=== PATIENT | female | born 1960 | race Caucasian/White ===

== ENCOUNTER → 2018-05-31 07:25 | Outpatient (CLI) | payer OTHER, SELFPAY ==
[2018-05-31 07:32] LABS: Bacteria Urine None Seen; WBC Urine None Seen (0-5/HPF)
[2018-05-31 08:45] LABS: Appearance Urine UA CLEAR; Bilirubin Urine UA NEGATIVE (NEGATIVE); Color Urine UA YELLOW; Glucose Urine UA NEGATIVE (Normal); Ketones Urine UA NEGATIVE (NEGATIVE); Leukocyte Esterase Urine UA NEGATIVE (NEGATIVE); Nitrite Urine UA Negative (Negative); Occult Blood Urine UA 2+ (Negative); Protein Urine UA NEGATIVE (Negative); Specific Gravity Urine UA 1.015 (1.000-1.035); Urobilinogen Urine UA 0.2 E.U./dL (0.2)
[2018-05-31 08:46] LABS: Add Manual Diff / Slide Review NO; Eosinophils Percent Auto 2.8 % (2-4); Hematocrit 41.9 % (36-46); Hemoglobin 14.4 g/dL (12.0-16.0); Mean Corpuscular HGB Conc 34.3 % (30-36); Mean Corpuscular Hemoglobin 33.5 PG (26-34); Mean Corpuscular Volume 97.7 fL (80-100); Monocytes Percent Auto 8.2 % (3-14); Neutrophils Absolute Auto 2000 /uL (3000-5900); Platelet Count 194 X10^3/uL (150-400); Red Blood Cell Count 4.29 X10^6/uL (4.0-5.2); Red Cell Distribution Width 12.7 % (11.6-14.8); White Blood Cell Count 3.9 X10^3/uL (4.5-11.0)
[2018-05-31 09:13] LABS: RBC Urine 1-5/HPF (0-5/HPF)
[2018-05-31 09:33] LABS: Blood Urea Nitrogen 18 mg/dL (7-17); Calcium 9.8 mg/dL (8.4-10.2); Carbon Dioxide 31 mmol/L (22-32); Chloride 106 mmol/L (98-107); Estimated Glomerular Filt Rate 56.9 mL/min (>60); Glucose 100 mg/dL (70-100); HEMOLYSIS < 15 (0-50); Potassium 4.8 mmol/L (3.4-5.1); Sodium 146 mmol/L (137-145)
== END ==
PROVIDERS: Visit Provider Orthopaedic Surgery
DX: Z01.818 Encounter for other preprocedural examination (principal); Z01.812 Encounter for preprocedural laboratory examination; R73.9 Hyperglycemia, unspecified; N39.0 Urinary tract infection, site not specified
CPT/HCPCS: 36415; 80048; 81001; 83036; 85025; 93005

== ENCOUNTER 2018-06-21 08:41 | Inpatient (IN) | payer OTHER, SELFPAY ==
[2018-06-07 08:30] VITALS: BMI 34.2
[2018-06-21] VITALS (11 sets, daily range): BP systolic 102–178; BP diastolic 67–95; PULSE 53–83; RESP 10–20; TEMP 36.1–37; O2SAT 95–100; BMI 34.4
--- NOTE | 2018-06-21 06:00 | DI.RAD.S_ITS ---
PROCEDURE: XR KNEE RT 1TO2V INDICATIONS: post op films TECHNIQUE: 2 view(s) of the knee acquired. COMPARISON: None. FINDINGS: Bones: Patient is status post knee joint arthroplasty. Hardware components are in expected positions. Visualized bony structures are intact. Soft tissues: Overlying postoperative changes are noted. IMPRESSION: Expected postoperative appearance Dictated by: Emerson Rodriguez M.D. on 06/21/2018 at 17:29 Approved by: Emerson Rodriguez M.D. on 06/21/2018 at 17:29
[2018-06-21] MEDS: LACTATED RINGERS 1,000 ML 42 ML IV ×2 (09:46→12:06)
[2018-06-21] MEDS: ACETAMINOPHEN 325 MG TABLET 975 MG PO ×2 (09:46→17:05)
[2018-06-21] MEDS: CELECOXIB 200 MG CAPSULE PO (09:47)
[2018-06-21] MEDS: PREGABALIN 75 MG CAPSULE PO (09:47)
[2018-06-21] MEDS: VANCOMYCIN 1,000 MG/200 ML FROZ.PIGGY 200 MG IV (10:12)
[2018-06-21] MEDS: MIDAZOLAM 2 MG/2 ML VIAL IV (10:55)
[2018-06-21] MEDS: fentaNYL 100 MCG/2 ML INJ IV (10:55)
[2018-06-21] MEDS: DEXAMETHASONE 10 MG/ML VIAL 8 MG IV (11:07)
[2018-06-21] MEDS: ONDANSETRON 4 MG/2 ML INJ IV (11:10)
--- NOTE | 2018-06-21 11:12 | SUR.PREOP ---
Block start time [1055] . Monitoring initiated and maintained throughout procedure. Oxygen and medications given per anesthesiologist instructions. Patient remained stable throughout procedure, no adverse reactions noted. Block end time [1105].
[2018-06-21] MEDS: CEFAZOLIN 2 GM/100 ML FROZ.PIGGY IV ×2 (11:25→20:16)
--- NOTE | 2018-06-21 11:59 | SUR.OPER ---
Supine on padded OR bed. Pillow under head, arms secured on padded armboards <90 degree abduction. Safety belt across torso. Non-operative leg secured with tape over blanket over lower leg. Operative leg secured in DeMayo/Jeronimo positioner. Foam padded brace at thigh of operative leg.
[2018-06-21] MEDS: BUPIVACAINE LIPOSOME 266 MG/20 ML VIAL INJ (12:11)
[2018-06-21] MEDS: BUPIVACAINE 0.25% W/ EPI VIAL 50 ML INJ (12:12)
[2018-06-21] MEDS: POVIDONE-IODINE 15 ML, SODIUM CHLORIDE 0.9% 250 ML TOP (12:13)
[2018-06-21] MEDS: LACTATED RINGERS 1,000 ML 125 ML IV ×2 (14:33→22:48)
--- NOTE | 2018-06-21 17:04 | PT.IIE ---
Current Diagnoses Unilateral primary osteoarthritis, right knee (06/21/18) Surgery Performed Operation Date: 06/21/18 10:45 Actual Procedures p Total Knee Arthroplasty(Right) - Vielka Guy MD Surgical History (Last Updated 06/07/18 @ 09:16 by Marlin Laguna, RN) History of arthroscopy of both knees (Acute) History of colonoscopy (Acute) Hx of lymph node biopsy (Acute) Hx of repair of right rotator cuff (Acute) Hx of tonsillectomy (Acute) Medical History (Last Updated 06/07/18 @ 09:16 by Marlin Laguna RN) Bilateral knee pain (Acute) Chronic pain (Acute) Colonic polyp (Acute) Easy bruisability (Acute) Edema (Acute) Environmental allergies (Acute) GERD (gastroesophageal reflux disease) (Acute) HTN (hypertension) (Acute) History of varicose veins of lower extremity (Acute) Hyperlipidemia (Acute) Hypothyroid (Acute) ANTONIO (iron deficiency anemia) (Acute) Osteoarthritis (Acute) Palpitations (Acute) SVT (supraventricular tachycardia) (Acute) Thyroid disease (Acute) Physical Therapy Inpatient Evaluation/Re-Eval M1 PT/OT-IP Prior Functional Status Start: 06/21/18 16:54 Freq: NEEDED Status: Active Protocol: Document 06/21/18 16:54 [facility] (Rec: 06/21/18 17:04 [facility] [id number]) Medical Review Prior Functional Status Medical History Reviewed Yes Communication WNL Mobility and Gait Indep without AD; pain and reports limping Activities of Daily Living and IADL's indep Social History Household Members significant other Living Arrangements House Number of Floors (Floors) One Floor Number of Stairs To Enter/Railing? 2 ERIC no rail Home Environment Standard Height Toilet Walk in Shower Tub/Shower Home Equipment Front Wheel Walker Straight Cane Raised Toilet Seat w/Armrests Shower Seat without Backrest Employment Status Unemployed Additional Social History Comment Friend who is helping is not working either M2 PT-IP Current Condition Start: 06/21/18 16:54 Freq: NEEDED Status: Active Protocol: Document 06/21/18 16:54 [facility] (Rec: 06/21/18 17:04 [facility] [id number]) Physical Therapy Current Condition Current Condition Evaluation Date 06/21/18 Treatment Diagnosis R TKA Onset Date 06/21/18 Weight Bearing Status Weight Bearing Status Weight Bear as Tolerated M3 PT-IP Subjective Start: 06/21/18 16:54 Freq: NEEDED Status: Active Protocol: Document 06/21/18 16:54 [facility] (Rec: 06/21/18 17:04 [facility] [id number]) Subjective Physical Therapy Visit Type Type Initial Evaluation Visit Start Time 16:00 Visit Stop Time 16:45 Total Visit Minutes 45 Number of HAZ TECH Visits 0 Physical Therapy Visit Comments Patient Goals Pt is hoping to go home tomorrow Therapy Pain Assessment Pain Present Pain Present Denied Pain M4 PT-IP Mobility and Gait Start: 06/21/18 16:54 Freq: NEEDED Status: Active Protocol: Document 06/21/18 16:54 [facility] (Rec: 06/21/18 17:04 [facility] [id number]) PT-Bed Mobility Assessment Rolling Type of Rolling Log Rolling Roll to Right Level of Assist Independent Supine to Sit Supine to Sit Standby Assistance Sit to Supine Sit to Supine Standby Assistance Scooting Scooting to Edge of Bed Independent PT-Transfer Assessment Sit to and From Stand Sit to and from Stand Minimal Assistance Equipment Transfer Assistive Device Gait Belt Front Wheeled Walker Orthotic/Prosthetic Devices or Brace: No Comments Mobility Comments Sit to stand 2x to clean up min A each time with cueing for upright positioning. Pt had dec sensation in LEs and impared balance d/t dec sensation so no transfer performed. supine BP 154/86 Seated 178/95 PT-Balance Assessment Sitting Balance and Reactions Static Sitting Balance Ability Normal Dynamic Sitting Balance Ability Good Standing Balance and Reactions Static Standing Balance Ability Poor Dynamic Standing Balance Ability Poor M5 PT-IP Objective Assessments Start: 06/21/18 16:54 Freq: NEEDED Status: Active Protocol: Document 06/21/18 16:54 [facility] (Rec: 06/21/18 17:04 [facility] [id number]) Orientation Orientation/Cognition Level of Alertness Alert Gross Range of Motion Lower Extremity ROM Assessment Right Impaired Strength Lower Extremity Strength Assessment Right Impaired Sensation Assessment Sensation Gross Sensation Right LE Impaired Left LE Impaired Light Touch Impaired Sensation Description Numbness Tingling Comments Sensation Comments Likely to improve as anesthesia wears off M6 PT-IP Treatment Start: 06/21/18 16:54 Freq: NEEDED Status: Active Protocol: Document 06/21/18 16:54 [facility] (Rec: 06/21/18 17:04 [facility] [id number]) Physical Therapy Treatment Exercises Exercises Ankle Pumps Education Education Provided Post-Op Packet Safety Other Treatments Other Treatment Performed Reviewed possible need of shower chair and pt reported she could borrow her mom's. Pt has OP PT set up next week and educated patient exercises . Discussed circuit court clerk possible need M7 PT-IP Assessment and Plan Start: 06/21/18 16:54 Freq: NEEDED Status: Active Protocol: Document 06/21/18 16:54 [facility] (Rec: 06/21/18 17:04 [facility] [id number]) PT Summary Assessment and Plan Potential Rehabilitation Potential Excellent Status of Condition at Evaluation Unstable Summary Impairments ROM Strength Balance Sensation Transfers Gait Assessment Summary pt presents day of TKA with dec mobility at this time. Pt is likely to improve as anesthesia wears off and with cont edu from PT. Goals Bed Mobility Goal Independent Transfer Goal Independent Gait Goal Standby Assistance Gait Distance 150 Other Goals up/down 2 steps without rail Days to Meet Goals 3 Frequency of Treatment Frequency Of Treatment Twice a Day Treatment Plan Physical Therapy Treatment Plan Bed Mobility Training Transfer Training Gait Training Therapeutic Exercise Balance Retraining Post Op Education Discharge Planning Hot or Cold Pack Neuromuscular Re-ed Other Recommendations and Next Treatment Progress transfer and gait Focus Recommendations To Nursing Amount of Assist Needed 1 Person Assist Discharge Recommendations PT Discharge Recommendations Home with Assistance Outpatient PT
[2018-06-21] MEDS: OXYCODONE IR 5 MG TABLET PO ×3 (17:06→23:40)
--- NOTE | 2018-06-21 18:19 | PM.OP.1 ---
Operative Date/Time/Diagnoses Date of procedure: 06/21/18 Time of procedure: 12:20 Pre-op diagnosis: right knee osteoarthritis Post-op diagnosis: same Procedure & Clinicians Procedure: right total knee arthroplasty Same procedure as scheduled: Yes Indications: severe ongoing right knee pain and failure to respond to conservative care. Surgeon: Vielka Guy Branch Service Representative: Yaa Sanz'Brien Anesthesia Type: Spinal and Peripheral nerve block Operative Notes Findings: Severe right knee osteoarthritis Closure Type: primary Specimen(s): none sent Implants & Drains: Guy and Nephew Journey BCS2 size right femur, size 5 tibia, +9 poly, 35 x 7 and 0.5 mm patella Estimated Blood Loss (mL): 200 Blood products transfused: none Tourniquet time (min): 90 Procedure in detail: The patient was seen in the pre-operative area, where the patient identified the right knee as the operative site and this was marked with my initials. The patient received pre-operative antibiotics, and was taken to the operating room and placed on the operative table in the supine position. After satisfactory anesthesia, a warehouser out was performed. The right leg was encircled with a tourniquet about the proximal thigh, and the leg was prepared from the toes to the tourniquet with ChloroPrep in the usual fashion and draped through sterile drapes. The leg was elevated and exsanguinated with Eschmark bandage and the tourniquet inflated to [250] mmHg pressure. The knee was approached through an approximately 18 cm incision centered over the patella and carried into the knee through a medial parapatellar arthrotomy. A portion of the medial and lateral meniscus was resected. Soft tissue was carefully mobilized around the patella the patella was measured with a caliper. Bone was resected from the patella and the patellar height was reconstituted with up an appropriate sized patellar component. A cover was then placed on the patella. A small amount of additional medial and lateral meniscus was resected. The visionare guide fit well to the distal femur. It looked like an appropriate distal femoral cut and the cut was made without difficulty. The rotation was assessed and the appropriate size femoral guide was placed on the distal femur and finishing cuts were made. There is no evidence of notching. The anterior, posterior and chamfer cuts were then made. The posterior osteophytes and soft tissues were then removed. The posterior capsule was injected with part of a mixture of 60 ml 0.25% Marcaine mixed with 20 ml Exparel for post operative pain control. The remainder of this mixture was injected into the capsule and subcutaneous tissues during cement curing. The tibia was prepared and the visionaire guide fit well to the distal tibia. The rotation was assessed. The patient was placed in extension residual medial and lateral meniscus as well as any residual bone was carefully resected. [No] additional tibia was resected. Hemostasis was achieved especially posteriorly. Additional local was injected into the posterior capsule. The extension gap was assessed and additional releases for gap balancing were performed as necessary. It was checked with the gap fixed income trading vice president. The femoral component was trial was placed and the notch was finished. Trial tibial and femoral components were then placed and the knee placed through a range of motion. Range of motion was [0-130], with good stability throughout the range. The trials were then removed, and the tibia was finished. The bone was prepared with pulsatile lavage, and dried with a sponge. Cement was applied and the tibia and femoral prosthetics were placed. The cement hardened early and a separate batch had to be mixed for the patella. Excess cement was removed during and after cement curing. A brief Betadine soak was performed. After confirming there was no extruded cement posteriorly, the final tibial insert was placed. The femur was about 1mm proud laterally due to cement issues. The knee was copiously irrigated and the tourniquet deflated. Hemostasis was obtained with the [Aquamantys system]. A drain was placed and brought out superolaterally. The capsule was closed with interrupted nonabsorbable sutures. The subcutaneous layer was closed with barbed sutures, and the skin with a running 3-0 V-Lock suture and Surgical glue. An Aquacel Ag dressing was applied and the patient was taken to recovery having tolerated the procedure well. Complications: none Condition: stable Disposition: observation Plan for aftercare: The patient will be maintained on a standard total knee replacement protocol with weight bearing as tolerated. The patient will receive aspirin and sequential compression devices for DVT prophylaxis. The patient will be discharged home when safe for the home environment.
[2018-06-21] MEDS: ATORVASTATIN 20 MG TABLET PO (20:17)
[2018-06-21] MEDS: ASPIRIN EC 81 MG TABLET PO (20:17)
[2018-06-21] MEDS: METOPROLOL IR 50 MG TABLET PO (20:17)
[2018-06-21] MEDS: IBUPROFEN 600 MG TABLET PO (20:17)
[2018-06-21] MEDS: DOCUSATE 100 MG CAPSULE PO (20:17)
--- NOTE | 2018-06-21 22:19 | PC.NURSE ---
Pt reports pain level 4-5/10 holding steady for the shift. Had a couple episodes of incontinence, and feeling of pressure in abdomen/back pain. Bladder scanned for >900cc. Catheter placed/Dr Brooks cordova with leaving in for the night and removing in AM. Pt received spinal, still numb in joseline area and bottom. Aquacell to right knee c/d/i, hemovac patent/compressed. CMS in R leg +.
[2018-06-22 00:19] VITALS: BP 138/81; PULSE 74; RESP 16; TEMP 36.9; O2SAT 97
[2018-06-22] MEDS: CEFAZOLIN 2 GM/100 ML FROZ.PIGGY IV (03:04)
[2018-06-22] MEDS: IBUPROFEN 600 MG TABLET PO (03:04)
[2018-06-22] MEDS: OXYCODONE IR 5 MG TABLET PO ×3 (03:05→11:25)
[2018-06-22 05:25] LABS: Hemoglobin 11.5 g/dL (12.0-16.0)
[2018-06-22] MEDS: LEVOTHYROXINE 125 MCG TABLET PO (05:37)
[2018-06-22 06:01] VITALS: BP 123/68; PULSE 71; RESP 16; TEMP 36.9; O2SAT 99
[2018-06-22] MEDS: METOPROLOL IR 50 MG TABLET PO (06:48)
--- NOTE | 2018-06-22 07:21 | PM.PNPO.1 ---
Subjective Date Patient Seen: 06/22/18 Time Patient Seen: 07:22 Interval history: Patient's pain 11/20. No fever chills. No nausea vomiting. Patient does have assistance at home. Patient does wish to go home today if safe to do so. She does have 2 steps into her house. Otherwise without complaints this morning. Exam Vital Signs (past 8 hours): - 06/22/18 00:19 06/22/18 06:01 Temperature 98.4 F 98.4 F Pulse Rate 74 71 Respiratory Rate 16 16 Blood Pressure 138/81 123/68 Pulse Oximetry 97 99 Oxygen Delivery Method Room Air Oxygen Flow Rate 0 Narrative Exam Narrative: 58-year-old female resting comfortably in bed in no apparent distress. Right knee dressing is clean, dry and intact. Hemovac drain in place. Motor functions intact distal right lower extremity. Sensation grossly intact to light touch. Objective Labs Result Diagrams: 06/22/18 05:08 Labs: Laboratory Results - last 24 hr 06/22/18 05:08 Hgb 11.5 L Hct 33.0 L Assessment & Plan Post-op Postoperative Procedures Operation Date: 06/21/18 10:45 Actual Procedures Side Surgeon p Total Knee Arthroplasty Right Vielka Guy MD Patient progressing as expected status post right total knee arthroplasty. Likely discharge home today after physical therapy. Quality VTE Deep Vein Thrombosis/Pulmonary Embolism Present on Admission: No
[2018-06-22 07:55] VITALS: BP 135/78; PULSE 69; RESP 16; TEMP 36.8; O2SAT 100
[2018-06-22] MEDS: ASPIRIN EC 81 MG TABLET PO (08:56)
[2018-06-22] MEDS: DOCUSATE 100 MG CAPSULE PO (08:56)
[2018-06-22] MEDS: ACETAMINOPHEN 325 MG TABLET 975 MG PO (08:56)
--- NOTE | 2018-06-22 09:48 | PT.IPTN ---
Current Diagnoses Unilateral primary osteoarthritis, right knee (06/21/18) Surgery Performed Operation Date: 06/21/18 10:45 Actual Procedures p Total Knee Arthroplasty(Right) - Vielka Guy MD Physical Therapy Treatment Note M2 PT-IP Current Condition Start: 06/21/18 16:54 Freq: NEEDED Status: Active Protocol: Document 06/21/18 16:54 [facility] (Rec: 06/21/18 17:04 [facility] [id number]) Physical Therapy Current Condition Current Condition Evaluation Date 06/21/18 Treatment Diagnosis R TKA Onset Date 06/21/18 Weight Bearing Status Weight Bearing Status Weight Bear as Tolerated M3 PT-IP Subjective Start: 06/21/18 16:54 Freq: NEEDED Status: Active Protocol: Document 06/22/18 09:38 [facility] (Rec: 06/22/18 09:48 [facility] [id number]) Subjective Physical Therapy Visit Type Type Treatment Note Visit Start Time 08:50 Visit Stop Time 09:35 Total Visit Minutes 45 Number of PURCHASING AND CLAIMS SUPERVISOR Visits 0 Physical Therapy Visit Comments Patient Comments Pt is hoping to go home today . Therapy Pain Assessment Location Right Knee Pain Behaviors Guarding M4 PT-IP Mobility and Gait Start: 06/21/18 16:54 Freq: NEEDED Status: Active Protocol: Document 06/22/18 09:38 [facility] (Rec: 06/22/18 09:48 [facility] [id number]) PT-Bed Mobility Assessment Supine to Sit Supine to Sit Independent Scooting Scooting to Edge of Bed Independent PT-Transfer Assessment Sit to and From Stand Sit to and from Stand Standby Assistance Equipment Transfer Assistive Device Gait Belt Front Wheeled Walker Orthotic/Prosthetic Devices or Brace: No Transfers Transfer Destination Chair Transfer Technique Stand Step Pivot Comments Mobility Comments Sit to stand to FWW from bed and from toilet and w/c and sat in chair after session. Gait Assessment Gait Gait Assistance Required: Standby Assistance Distance (Feet) 150 Able to Maintain Weight Bearing Status Yes During Gait Assistive Devices Assistive Device Front Wheeled Walker Orthotic/Prosthetic Devices or Brace: No Gait Deviations General Gait Pattern Antalgic Decreased Stride Length Step-to Gait Factors Limiting Gait Function Factors Limiting Gait Function Decreased Strength Limited Range of Motion Pain Comments Gait Comments min cueing required for gait Stair Climbing Assessment Evaluation Level of Assist On Stairs Standby Assistance Devices Stair Climbing Assistive Devices Front Wheel Walker Technique/Endurance Stair Climbing Direction Ascend and Descend Stair Climbing Technique Step to Step Number of Steps Climbed 2 Query Text: Stair Climbing Set # Repetitions (reps) 2 Comments Stair Climbing Comments Friend present and assisted with FWW PT-Balance Assessment Sitting Balance and Reactions Static Sitting Balance Ability Normal Dynamic Sitting Balance Ability Normal Standing Balance and Reactions Static Standing Balance Ability Good Dynamic Standing Balance Ability Fair M5 PT-IP Objective Assessments Start: 06/21/18 16:54 Freq: NEEDED Status: Active Protocol: Document 06/21/18 16:54 [facility] (Rec: 06/21/18 17:04 [facility] [id number]) Orientation Orientation/Cognition Level of Alertness Alert Gross Range of Motion Lower Extremity ROM Assessment Right Impaired Strength Lower Extremity Strength Assessment Right Impaired Sensation Assessment Sensation Gross Sensation Right LE Impaired Left LE Impaired Light Touch Impaired Sensation Description Numbness Tingling Comments Sensation Comments Likely to improve as anesthesia wears off M6 PT-IP Treatment Start: 06/21/18 16:54 Freq: NEEDED Status: Active Protocol: Document 06/22/18 09:38 [facility] (Rec: 06/22/18 09:48 [facility] [id number]) Physical Therapy Treatment Education Education Provided Safety Other Treatments Other Treatment Performed Educated on getting in/out of car & in/out of shower. Discussed with friend of assistance with dressing and bathing prn. Reviewed frequency of exercises and amb M7 PT-IP Assessment and Plan Start: 06/21/18 16:54 Freq: NEEDED Status: Active Protocol: Document 06/22/18 09:38 [facility] (Rec: 06/22/18 09:48 [facility] [id number]) PT Summary Assessment and Plan Summary Progress Towards Goals Safe For Discharge Assessment Summary Pt did very well with mobility today and was able to do amb and stairs required for d/c home. Pt is cleared by PT for d/c home. Goals Bed Mobility Goal Independent Transfer Goal Independent Gait Goal Standby Assistance Gait Distance 150 Other Goals up/down 2 steps without rail Days to Meet Goals 3 Frequency of Treatment Frequency Of Treatment Twice a Day Treatment Plan Other Recommendations and Next Treatment d/c home unless further Focus questions from pt Recommendations To Nursing Amount of Assist Needed Standby Assistance Discharge Recommendations PT Discharge Recommendations Home with Assistance Outpatient PT
--- NOTE | 2018-06-22 12:32 | P.DS_ITS ---
History of Present Illness Date Patient Seen: 06/22/18 Time Patient Seen: 07:29 Chief complaint: total knee arthroplasty right [id number] Narrative: See progress note. Discharge Providers Date of admission: 06/21/18 08:41 Primary care physician: NORA Zavala Consults: 06/21/18 06:00 Consult to Anesthesiology Routine Comment: Consulting Provider: Anesthesiologist Reason for consultation: Regional block for post operative pain control 06/21/18 14:24 Consult to Discharge Planning Routine Comment: Consult to Physical Therapy Evaluate & Treat Comment: Physician Instructions: postop TKA protocol Consult to Respiratory Therapy Evaluate & Treat Comment: Physician Instructions: Evaluate and treat Discharge provider: Raul Lombardo PA-C Discharge Date: 06/22/18 Summary Discharge Diagnosis: Status post right total knee arthroplasty. Hospital Course: Patient admitted to the hospital for right total knee arthroplasty. Patient failed conservative outpatient treatment for severe right knee DJD. Patient consented to the same. Patient taken the operating room underwent right total knee arthroplasty. Patient back in her room recovering well and is in stable condition. Patient received spinal and peripheral nerve block. Estimated blood loss 200 cc. Status at Discharge Functional status at discharge: uses cane/walker Overall status at discharge: patient is progressing back to baseline Exam Vital Signs (past 8 hours): - 06/22/18 06:01 06/22/18 07:55 Temperature 98.4 F 98.3 F Pulse Rate 71 69 Respiratory Rate 16 16 Blood Pressure 123/68 135/78 Pulse Oximetry 99 100 Oxygen Delivery Method Room Air Oxygen Flow Rate 0 Narrative Exam Narrative: See progress note. Objective Labs Result Diagrams: 06/22/18 05:08 Labs: Laboratory Results - last 24 hr 06/22/18 05:08 Hgb 11.5 L Hct 33.0 L Discharge Plan Discharge Plan Patient Disposition: Home Discharge comment: DC home Discharge Med Rec/Prescriptions Prescriptions: Continue atorvastatin 20 mg Tablet 20 mg PO BEDTIME RF: 0 meloxicam 15 mg Tablet 15 mg PO DAILY RF: 0 metoprolol tartrate 50 mg Tablet 50 mg PO BID RF: 0 ranitidine HCl 150 mg Capsule 150 mg PO BID RF: 0 cyclobenzaprine 5 mg Tablet 5 mg PO BID PRN (Reason: Muscle Spasm) RF: 0 levothyroxine 125 mcg Capsule 125 mcg PO DAILY RF: 0 Discontinued tramadol 50 mg Tablet 2 tab PO QID PRN (Reason: pain) RF: 0 Follow up/Referrals: Aundrea Silverman ARNP [Primary Care Provider] - Vielka Guy MD [Physician] - Provider Discharge Instructions Diet: Diet as Tolerated Activity: WBAT Cold/Heat Therapy: ice as needed Other treatments: Take home meds as directed at decision for surgery visit/ [facility] book Skin/Wound/Dressing Care Report to your healthcare provider any signs of infection, such as:: chills, fever, night sweats, increased pain and unusual drainage Dressing: Keep clean and dry Visit Report/Discharge Packet Visit Report Forms: Stroke Signs & Symptoms Discharge Data Primary Care Provider: Aundrea Silverman Attending Provider: Vielka Guy Admit Date/Time: 06/21/18 08:41 Discharges patient from system. Discharge Date/Time: 06/22/18 11:53 Quality VTE Deep Vein Thrombosis/Pulmonary Embolism Present on Admission: No
== END 2018-06-22 11:53 | disposition home or self-care (01) | DRG 470 ==
PROVIDERS: Admitting Provider Orthopaedic Surgery; PCP Nurse Practitioner; Visit Provider Orthopaedic Surgery
PROC: 0SRC0JZ Replacement of Right Knee Joint with Synthetic Substitute, Open Approach (ICD-10-PCS; CPT 27447; principal; 2018-06-21 10:45)
DX: M17.11 Unilateral primary osteoarthritis, right knee (principal); E07.9 Disorder of thyroid, unspecified; I10 Essential (primary) hypertension; Z87.891 Personal history of nicotine dependence; M71.21 Synovial cyst of popliteal space [Baker], right knee
CPT/HCPCS: 36415; 64447; 73560; 85014; 85018; 97116; 97163; 97530; C1776; C9290; J0690; J1100; J2250; J2405; J2704; J3010; J3370

== ENCOUNTER 2018-11-14 06:24 | Inpatient (IN) | payer OTHER, SELFPAY ==
[2018-06-21 14:40] VITALS: BMI 34.4
[2018-10-13 08:15] VITALS: BMI 35.9
[2018-11-14] VITALS (16 sets, daily range): BP systolic 110–126; BP diastolic 61–89; PULSE 64–81; RESP 12–20; TEMP 36–36.9; O2SAT 14–100; BMI 35.9
--- NOTE | 2018-11-14 06:00 | DI.RAD.S_ITS ---
PROCEDURE: XR KNEE LT 1TO2V INDICATIONS: prosthesis placement TECHNIQUE: 2 views of the knee were acquired. COMPARISON: [facility], CR, XR KNEE RT 1TO2V, 06/21/2018, 13:55. FINDINGS: Bones: No fractures or dislocations. No suspicious bony lesions. Normal alignment after left total knee arthroplasty. Soft tissues: No joint effusion. No suspicious soft tissue calcifications. IMPRESSION: Expected postsurgical change after left total knee arthroplasty, with a surgical drain overlying the operative site. Dictated by: Kvng Camejo M.D. on 11/14/2018 at 13:00 Approved by: Kvng Camejo M.D. on 11/14/2018 at 13:00
[2018-11-14] MEDS: CELECOXIB 200 MG CAPSULE PO (06:54)
[2018-11-14] MEDS: ACETAMINOPHEN 325 MG TABLET 975 MG PO ×3 (06:54→21:06)
[2018-11-14] MEDS: PREGABALIN 75 MG CAPSULE PO (06:54)
[2018-11-14] MEDS: VANCOMYCIN 1,000 MG/200 ML FROZ.PIGGY 200 MG IV (07:01)
[2018-11-14] MEDS: LACTATED RINGERS 1,000 ML 42 ML IV ×2 (07:01→09:35)
--- NOTE | 2018-11-14 07:48 | PM.PREOP ---
Pre-operative Note Interval Note History & Physical reviewed/Exam performed by Physician: Yes Changes to H&P: No
--- NOTE | 2018-11-14 07:50 | PM.OP.1 ---
Operative Date/Time/Diagnoses Date of procedure: 11/14/18 Time of procedure: 07:50 Pre-op diagnosis: left knee OA Post-op diagnosis: same Procedure & Clinicians Procedure: Left total knee Same procedure as scheduled: Yes Indications: The patient has had progressively worsening left knee pain with radiographic changes consistent with arthritis. Non-operative management has failed and the patient has requested total knee replacement. The risks, benefits and alternatives to surgery were discussed with the patient prior to proceeding. Risks discussed included, but were not limited to, failure to relieve pain, stiffness, infection, nerve damage, deep venous thrombosis, pulmonary embolism, stroke, coma, heart attack, permanent paralysis and , as well as the potential need for eventual revision of the prosthetic. Surgeon: Vielka Guy Medical Staff Director: Capo Bhatti Anesthesia Type: Spinal Operative Notes Findings: Severe left knee osteoarthritis, adequate stability, good range of motion Closure Type: primary Specimen(s): none sent Prosthetic devices, grafts, tissues, transplants, or devices: [facility] be CS size 8 femur, size 6 tibia, 35 by 7-1/2 patella, +9 poly Applied: drain(s) Estimated Blood Loss (mL): 250 Blood products transfused: none Tourniquet time (min): 95 Procedure in detail: The patient was seen in the pre-operative area, where the patient identified the left knee as the operative site and this was marked with my initials. The patient received pre-operative antibiotics, and was taken to the operating room and placed on the operative table in the supine position. After satisfactory anesthesia, a apartment hotel manager out was performed. The left leg was encircled with a tourniquet about the proximal thigh, and the leg was prepared from the toes to the tourniquet with ChloroPrep in the usual fashion and draped through sterile drapes. The leg was elevated and exsanguinated with Eschmark bandage and the tourniquet inflated to [250] mmHg pressure. The knee was approached through an approximately 18 cm incision centered over the patella and carried into the knee through a medial parapatellar arthrotomy. A portion of the medial and lateral meniscus was resected. Soft tissue was carefully mobilized around the patella the patella was measured with a caliper. Bone was resected from the patella and the patellar height was reconstituted with up an appropriate sized patellar component. A cover was then placed on the patella. A small amount of additional medial and lateral meniscus was resected. The visionare guide fit well to the distal femur. It looked like an appropriate distal femoral cut and the cut was made without difficulty. The rotation was assessed and the appropriate size femoral guide was placed on the distal femur and finishing cuts were made. There was no evidence of notching. The anterior, posterior and chamfer cuts were then made. The posterior osteophytes and soft tissues were then removed. The posterior capsule was injected with part of a mixture of 60 ml 0.25% Marcaine mixed with 20 ml Exparel for post operative pain control. The remainder of this mixture was injected into the capsule and subcutaneous tissues during cement curing. The tibia was prepared and the visionaire guide fit well to the distal tibia. The rotation was assessed. The patient was placed in extension residual medial and lateral meniscus as well as any residual bone was carefully resected. [No] additional tibia was resected. Hemostasis was achieved especially posteriorly. Additional local was injected into the posterior capsule. The extension gap was assessed and additional releases for gap balancing were performed as necessary. It was checked with the gap solderer assembler. The femoral component was trial was placed and the notch was finished. Trial tibial and femoral components were then placed and the knee placed through a range of motion. Range of motion was [0-130], with good stability throughout the range. The trials were then removed, and the tibia was finished. The bone was prepared with pulsatile lavage, and dried with a sponge. Cement was applied and the final prosthetics placed. Excess cement was removed during and after cement curing. A brief Betadine soak was performed. After confirming there was no extruded cement posteriorly, the final tibial insert was placed. The knee was copiously irrigated and the tourniquet deflated. Hemostasis was obtained with the Bovie. A drain was placed and brought out superolaterally. The capsule was closed with interrupted nonabsorbable suture. The subcutaneous layer was closed with barbed sutures, and the skin with a running 3-0 V-Lock suture and Surgical glue. An Aquacel Ag dressing was applied and the patient was taken to recovery having tolerated the procedure well. Complications: none Condition: stable Disposition: Acute Care Plan for aftercare: The patient will be maintained on a standard total knee replacement protocol with weight bearing as tolerated. The patient will receive aspirin and sequential compression devices for DVT prophylaxis. The patient will be discharged home when safe for the home environment.
[2018-11-14] MEDS: CEFAZOLIN 2 GM/100 ML FROZ.PIGGY IV ×3 (07:55→23:42)
[2018-11-14] MEDS: BUPIVACAINE LIPOSOME 266 MG/20 ML VIAL INJ (09:30)
[2018-11-14] MEDS: BUPIVACAINE 0.25% W/ EPI VIAL 60 ML INJ (09:30)
--- NOTE | 2018-11-14 11:57 | PC.NURSE ---
Patient arrived to room 204, oriented to room and call light. VSS. 97% RA. denies pain. Hemovac in place, compressed and intact. Aquacel with luke wrap in place, CDI. Call light within reach. continue with plan of care.
[2018-11-14] MEDS: LACTATED RINGERS 1,000 ML 125 ML IV (11:59)
--- NOTE | 2018-11-14 15:42 | PT.IIE ---
Current Diagnoses Unilateral primary osteoarthritis, left knee (11/14/18) Surgery Performed Operation Date: 11/14/18 07:45 Actual Procedures p Total Knee Arthroplasty(Left) - Vielka Guy MD Surgical History (Last Updated 10/13/18 @ 08:35 by Marlin Laguna, RN) History of arthroplasty of right knee (Acute 06/21/18) History of arthroscopy of both knees (Acute) History of colonoscopy (Acute) Hx of lymph node biopsy (Acute) Hx of repair of right rotator cuff (Acute) Hx of tonsillectomy (Acute) Medical History (Last Updated 06/07/18 @ 09:16 by Marlin Laguna RN) Bilateral knee pain (Acute) Chronic pain (Acute) Colonic polyp (Acute) Easy bruisability (Acute) Edema (Acute) Environmental allergies (Acute) GERD (gastroesophageal reflux disease) (Acute) HTN (hypertension) (Acute) History of varicose veins of lower extremity (Acute) Hyperlipidemia (Acute) Hypothyroid (Acute) ANTONIO (iron deficiency anemia) (Acute) Osteoarthritis (Acute) Palpitations (Acute) SVT (supraventricular tachycardia) (Acute) Thyroid disease (Acute) Physical Therapy Inpatient Evaluation/Re-Eval M1 PT/OT-IP Prior Functional Status Start: 11/14/18 15:19 Freq: NEEDED Status: Active Protocol: Document 11/14/18 14:10 (Rec: 11/14/18 15:42 [email or web address]) Medical Review Prior Functional Status Medical History Reviewed Yes Diet/Fluid Consistency Regular Communication No deficits noted Mobility and Gait Pt was an independent ambulator at home and community without using AD. Pt did use a FWW/ SPC for a few weeks after her first R knee replacement in last June. Pt states climbing stairs is always harder for her due to B knee pain. Activities of Daily Living and IADL's Pt was independent for ADLs/ IADLs without using AD. Social History Household Members significant other Living Arrangements House Number of Floors (Floors) One Floor Number of Stairs To Enter/Railing? 2 ERIC without railing Home Environment Standard Height Toilet Walk in Shower Home Equipment Front Wheel Walker Straight Cane Raised Toilet Seat w/Armrests Employment Status Retired Additional Social History Comment Pt lives with her significant other in a 1 story home with 2 ERIC. Pt's SO is very independent as well who was able to assist her as needed after her 1st R knee replacement in June. Pt reports she has enough DME/ AD at home because of her R knee replacement. She feels very safe to be d/c home and follow up with [facility] in [place]. M2 PT-IP Current Condition Start: 11/14/18 15:19 Freq: NEEDED Status: Active Protocol: Document 11/14/18 14:10 HH (Rec: 11/14/18 15:42 [email or web address]) Physical Therapy Current Condition Current Condition Evaluation Date 11/14/18 Treatment Diagnosis L TKA, difficulty in walking Onset Date 11/14/18 Weight Bearing Status Weight Bearing Status Weight Bear as Tolerated M3 PT-IP Subjective Start: 11/14/18 15:19 Freq: NEEDED Status: Active Protocol: Document 11/14/18 14:10 HH (Rec: 11/14/18 15:42 [email or web address]) Subjective Physical Therapy Visit Type Type Initial Evaluation Visit Start Time 14:10 Visit Stop Time 14:45 Total Visit Minutes 35 Notes Daniel wrap and Hemovac in place Number of QUARRY WORKER Visits 0 Physical Therapy Visit Comments Patient Comments My body feels cold and sweating at the same time. My L knee still feels quite numb but I want to get up and use bathroom. Patient Goals To return home and participate with outpatient PT. Therapy Pain Assessment Pain When Pain Assessed During Mobility Pain Present Pain Present Pain Reported Location Right Knee Intensity 3 Scale Used Numeric (1 - 10) M4 PT-IP Mobility and Gait Start: 11/14/18 15:19 Freq: NEEDED Status: Active Protocol: Document 11/14/18 14:10 HH (Rec: 11/14/18 15:42 [email or web address]) PT-Bed Mobility Assessment Supine to Sit Supine to Sit Standby Assistance Head of Bed Elevated Scooting Scooting to Edge of Bed Standby Assistance PT-Transfer Assessment Sit to and From Stand Sit to and from Stand Standby Assistance Use of Upper Extremities Equipment Transfer Assistive Device Gait Belt Front Wheeled Walker Transfers Transfer Destination Bed Chair Toilet Transfer Technique Stand Step Pivot Transfer Ability Level of Assist Contact Guard Assistance Comments Mobility Comments supine BP 141/ 85 HR 73 SpO2 96% post amb BP 137/96 HR 80 SpO2 98% Pt was seen in bed upon assessment. Pt got up to EOB SBA by pivoting her RLE to her L side. Pt was able to use stagger stance to stand up from EOB with FWW. Pt transferred herself in bathroom to reg toilet with grab bars on L. Pt demonstrates proper hand and foot placements for transfers and denies pain and acute distress. Gait Assessment Gait Distance (Feet) 100 Able to Maintain Weight Bearing Status Yes During Gait Assistive Devices Assistive Device Gait Belt Front Wheeled Walker Gait Deviations General Gait Pattern Antalgic Decreased Stride Length Decreased Feet Clearance Factors Limiting Gait Function Factors Limiting Gait Function Decreased Activity Tolerance Decreased Sensation Decreased Strength Limited Range of Motion Pain Comments Gait Comments Pt amb from EOB to bathroom first, followed by amb in the hallway with SBA for a total of 100 ft. Pt demonstrated slight L antalgic gait but she was able to FWB on L LE. Pt states I feel really good with the L knee. Stair Climbing Assessment Evaluation Level of Assist On Stairs Standby Assistance Devices Stair Climbing Assistive Devices Left Railing Right Railing Technique/Endurance Stair Climbing Direction Ascend and Descend Stair Climbing Technique Step to Step Number of Steps Climbed 3 Query Text: Stair Climbing Set # Repetitions (reps) 2 Comments Stair Climbing Comments Ascend : lead with RLE Descend: lead with LLE PT-Balance Assessment Sitting Balance and Reactions Static Sitting Balance Ability Normal Dynamic Sitting Balance Ability Normal Standing Balance and Reactions Static Standing Balance Ability Good Dynamic Standing Balance Ability Fair M5 PT-IP Objective Assessments Start: 11/14/18 15:19 Freq: NEEDED Status: Active Protocol: Document 11/14/18 14:10 (Rec: 11/14/18 15:42 [email or web address]) Orientation Orientation/Cognition Level of Alertness Alert Orientation Name Age Birthday Month Date Year Day of Week Place Situation Language Function Ability No Deficits Noted Safety Awareness Understands Safety Issues Memory Description No Deficits Noted Gross Range of Motion Upper Extremity ROM Assessment Within Functional Limits Lower Extremity ROM Assessment Left Impaired Impairments L knee flexion and extension 100 degrees to 5 degrees Strength Upper Extremity Strength Assessment Within Functional Limits Lower Extremity Strength Assessment Left Impaired Comments Strength Comments 4-/5 L knee strength grossly Coordination Assessment Gross Coordination Gross Coordination WNL Sensation Assessment Sensation Gross Sensation Left LE Impaired Light Touch Impaired Proprioception (Position) Impaired Sensation Description Numbness Tingling Comments Sensation Comments c/o numbness and tingling at the bottom of L foot Muscle Tone Muscle Tone WNL Yes M6 PT-IP Treatment Start: 11/14/18 15:19 Freq: NEEDED Status: Active Protocol: Document 11/14/18 14:10 HH (Rec: 11/14/18 15:42 [email or web address]) Physical Therapy Treatment Exercises Exercises Ankle Pumps Gluteal Sets Quad Sets Heel Slides Education Education Provided Precautions Weight Bearing Status Post-Op Packet Safety Other Treatments Other Treatment Performed standing L TKE M7 PT-IP Assessment and Plan Start: 11/14/18 15:19 Freq: NEEDED Status: Active Protocol: Document 11/14/18 14:10 HH (Rec: 11/14/18 15:42 [email or web address]) PT Summary Assessment and Plan Potential Rehabilitation Potential Excellent Status of Condition at Evaluation Stable Summary Impairments Pain ROM Strength Bed Mobility Transfers Gait Activity Tolerance Assessment Summary Pt is a very pleasant and motivated 58yo female POD #1 L TKA. Upon assessment, pt was able to amb with FWW 100 ft SBA and climb stairs with step to pattern SBA. Pt only demonstrated slight L antalgic gait but remained very steady and cautious during session. Pt also has a very good understanding of safety awareness and transfer techniques due to previous R BONITA. Pt will be safe to d/c home with significant other's assistance, along with outpatient PT to improve overall mobility. Goals Bed Mobility Goal Independent Transfer Goal Independent Front Wheeled Walker Gait Goal Independent Front Wheel Walker Gait Distance 300 Other Goals stair climbing with rails as rose marie independently Days to Meet Goals 3 Frequency of Treatment Frequency Of Treatment Twice a Day Treatment Plan Physical Therapy Treatment Plan Bed Mobility Training Transfer Training Gait Training Therapeutic Exercise Balance Retraining Post Op Education Discharge Planning Hot or Cold Pack Other Recommendations and Next Treatment sit to stand therex Focus gait / stair training as rose marie Recommendations To Nursing Amount of Assist Needed Standby Assistance 1 Person Assist Discharge Recommendations PT Discharge Recommendations Home with Assistance Outpatient PT
[2018-11-14] MEDS: OXYCODONE IR 5 MG TABLET PO ×2 (17:13→21:06)
[2018-11-14] MEDS: ATORVASTATIN 20 MG TABLET PO (21:06)
[2018-11-14] MEDS: DOCUSATE 100 MG CAPSULE PO (21:06)
[2018-11-14] MEDS: METOPROLOL IR 50 MG TABLET PO (21:06)
[2018-11-14] MEDS: ASPIRIN EC 81 MG TABLET PO (21:06)
--- NOTE | 2018-11-14 23:57 | CM.MNRNOTE ---
Addendum entered by Dominga Tripathi R.N. 11/15/18 03:05: Complains of 4/10 achy pain in left knee; medicated with Oxycodone. Original Note: Addendum entered by Dominga Tripathi R.N. 11/15/18 02:45: 0009 Dr Paez informed of 250cc output from hemovac on evening shift. Order received to clamp for next 8 hours so hemostat applied. Original Note: Patient is alert and oriented. Breath sounds CTA with RA sat of 97%. HRR. Denies nausea. BT hypoactive; denies flatus. Denies dysuria, frequency, urgency or incontinence. Able to move self in bed and gets up to bathroom with walker and SBA. Denies weakness but states she is just unsure of self when walking. Aquacel + luke wrap to left LE is CDI; hemovac is compressed and intact. Denies pain. CMS intact. Refuses to wear SCD's overnight so reminded to ankle wave. Fall risk score is low.
[2018-11-15] MEDS: OXYCODONE IR 5 MG TABLET PO ×4 (03:01→15:03)
[2018-11-15 03:50] VITALS: BP 128/56; PULSE 65; RESP 18; TEMP 36.1; O2SAT 100
[2018-11-15] MEDS: LEVOTHYROXINE 125 MCG TABLET PO (05:58)
[2018-11-15 06:13] LABS: Hemoglobin 11.7 g/dL (12.0-16.0)
--- NOTE | 2018-11-15 07:46 | P.OP_ITS ---
Operative Date/Time/Diagnoses Date of procedure: 11/15/18 Time of procedure: 07:58 Pre-op diagnosis: right knee OA Post-op diagnosis: same Procedure & Clinicians Procedure: right total knee arthroplasty Same procedure as scheduled: Yes Surgeon: Vielka Crisostomo Ammonia Technician: Ivette Mason Anesthesia Type: Spinal Operative Notes Findings: Severe right knee osteoarthritis, good stability Closure Type: primary Specimen(s): none sent Prosthetic devices, grafts, tissues, transplants, or devices: crisostomo and nephew johnny BCS2 femur 4, tibia 2, patella 35, poly Applied: drain(s) Estimated Blood Loss (mL): 250 Blood products transfused: none Procedure in detail: The patient was seen in the pre-operative area, where the patient identified the right knee as the operative site and this was marked with my initials. The patient received pre-operative antibiotics, and was taken to the operating room and placed on the operative table in the supine position. After satisfactory anesthesia, a oncology physician assistant out was performed. The right leg was encircled with a tourniquet about the proximal thigh, and the leg was prepared from the toes to the tourniquet with ChloroPrep in the usual fashion and draped through sterile drapes. The leg was elevated and exsanguinated with Eschmark bandage and the tourniquet inflated to [250] mmHg pressure. The knee was approached through an approximately 18 cm incision centered over the patella and carried into the knee through a medial parapatellar arthrotomy. A portion of the medial and lateral meniscus was resected. Soft tissue was carefully mobilized around the patella the patella was measured with a caliper. Bone was resected from the patella and the patellar height was reconstituted with up an appropriate sized patellar component. A cover was then placed on the patella. A small amount of additional medial and lateral meniscus was resected. The visionare guide fit well to the distal femur. It looked like an appropriate distal femoral cut and the cut was made without difficulty. The rotation was assessed and the appropriate size femoral guide was placed on the distal femur and finishing cuts were made. There is no evidence of notching. The anterior, posterior and chamfer cuts were then made. The posterior osteophytes and soft tissues were then removed. The posterior capsule was injected with part of a mixture of 60 ml 0.25% Marcaine mixed with 20 ml Exparel for post operative pain control. The remainder of this mixture was injected into the capsule and subcutaneous tissues during cement curing. The tibia was prepared and the visionaire guide fit well to the distal tibia. The rotation was assessed. The patient was placed in extension residual medial and lateral meniscus as well as any residual bone was carefully resected. [No] additional tibia was resected. Hemostasis was achieved especially posteriorly. Additional local was injected into the posterior capsule. The extension gap was assessed and additional releases for gap balancing were performed as necessary. It was checked with the gap toy mechanic. The femoral component was trial was placed and the notch was finished. Trial tibial and femoral components were then placed and the knee placed through a range of motion. Range of motion was [0-130], with good stability throughout the range. The trials were then removed, and the tibia was finished. The bone was prepared with pulsatile lavage, and dried with a sponge. Cement was applied and the final prosthetics placed. Excess cement was removed during and after cement curing. A brief Betadine soak was performed. After confirming there was no extruded c ement posteriorly, the final tibial insert was placed. The knee was copiously irrigated and the tourniquet deflated. Hemostasis was obtained with the Bovie. A drain was placed and brought out superolaterally. The capsule was closed with interrupted Vicryl. The subcutaneous layer was closed with barbed sutures, and the skin with a running 3-0 V-Lock suture and Surgical glue. An Aquacel Ag dressing was applied and the patient was taken to recovery having tolerated the procedure well. Complications: none Condition: stable Disposition: observation Plan for aftercare: The patient will be maintained on a standard total knee replacement protocol with weight bearing as tolerated. The patient will receive aspirin and sequential compression devices for DVT prophylaxis. The patient will be discharged home when safe for the home environment.
--- NOTE | 2018-11-15 07:58 | PM.PREOP ---
Pre-operative Note Interval Note History & Physical reviewed/Exam performed by Physician: Yes Changes to H&P: No
[2018-11-15 08:11] VITALS: BP 114/69; PULSE 65; RESP 17; TEMP 36.6; O2SAT 100
--- NOTE | 2018-11-15 08:39 | PM.DS.1 ---
History of Present Illness Date Patient Seen: 11/15/18 Time Patient Seen: 08:40 Chief complaint: left knee [id number] Narrative: Hospital day 2, postop day 1 following left total knee arthroplasty by Dr. Guy. Patient remained stable overnight. She did have increased output from her Hemovac last evening at 280 cc. Hemovac was clamped at midnight. Pain has been controlled well with oxycodone. She did work with PT yesterday and felt she was stable to be going home. She is scheduled to go to [facility]. Discharge Providers Date of admission: 11/14/18 06:24 Discharge Date: 11/15/18 Primary care physician: NORA Zavala Consults: 11/14/18 06:00 Consult to Anesthesiology Routine Comment: Consulting Provider: Anesthesiologist Reason for consultation: Regional block for post operative pain control 11/14/18 11:46 Consult to Discharge Planning Routine Comment: Consult to Physical Therapy Evaluate & Treat Comment: Physician Instructions: postop TKA protocol Consult to Respiratory Therapy Evaluate & Treat Comment: Physician Instructions: Evaluate and treat Discharge provider: Capo Bhatti PA-C Summary Discharge Diagnosis: Status post left total knee arthroplasty. Hospital Course: Patient brought to hospital on 11/14/2018 for above noted surgery. She remained stable postoperatively. She had increased drainage from her Hemovac the 1st evening but drainage decreased on postop day 1. Patient did well with PT. Ready for discharge home on postop day 1. Status at Discharge Cognitive/behavioral status at discharge: Alert, oriented no acute distress. Functional status at discharge: uses cane/walker Overall status at discharge: patient is progressing back to baseline Time Spent with Patient Less than 30 minutes Exam Vital Signs (past 8 hours): - 11/15/18 03:50 11/15/18 08:11 Temperature 97.0 F L 97.8 F Pulse Rate 65 65 Respiratory Rate 18 17 Blood Pressure 128/56 L 114/69 Pulse Oximetry 100 100 Oxygen Delivery Method Room Air Oxygen Flow Rate 0 Narrative Exam Narrative: Legs. Daniel wrap an Aquacel dressing to left knee is dry without drainage or inflammation. Hemovac in place. No calf pain or swelling. Pulses symmetrical. Objective Labs Result Diagrams: 11/15/18 05:57 Labs: Laboratory Results - last 24 hr 11/15/18 05:57 Hgb 11.7 L Hct 34.0 L Discharge Plan Discharge Plan Patient Disposition: Home Discharge comment: Discharge to home today after cleared by PT and Hemovac the DC.. The patient is a [facility] patient and has postop pain medications at home. Discharge Med Rec/Prescriptions Prescriptions: New acetaminophen 325 mg Tablet 975 mg PO TID Qty: 30 RF: 0 aspirin 81 mg Tablet,Delayed Release (Dr/Ec) 81 mg PO BID Qty: 60 RF: 0 Continued atorvastatin 20 mg Tablet 20 mg PO BEDTIME RF: 0 meloxicam 15 mg Tablet 15 mg PO DAILY RF: 0 metoprolol tartrate 50 mg Tablet 50 mg PO BID RF: 0 ranitidine HCl 150 mg Capsule 150 mg PO BID RF: 0 cyclobenzaprine 5 mg Tablet 5 mg PO BID PRN (Reason: Muscle Spasm) RF: 0 levothyroxine 125 mcg Capsule 125 mcg PO DAILY RF: 0 Follow up/Referrals: Aundrea Silverman ARNP [Primary Care Provider] - Provider Discharge Instructions Diet: Diet as Tolerated Activity: Ambulate as tolerated. Use walker as needed. Cold/Heat Therapy: Cold pack to knee as needed. Other treatments: Take aspirin 81 mg b.i.d. x1 month postop Skin/Wound/Dressing Care Report to your healthcare provider any signs of infection, such as:: chills, fever, night sweats, increased pain, unusual drainage and unusual redness Dressing: Keep Aquacel dressing in place until postop visit. Visit Report/Discharge Packet Instructions: DI for Knee Replacement Discharge Data Primary Care Provider: Aundrea Silverman Attending Provider: Vielka Guy Admit Date/Time: 11/14/18 06:24
[2018-11-15] MEDS: CYCLOBENZAPRINE 5 MG TABLET PO (08:55)
[2018-11-15] MEDS: ACETAMINOPHEN 325 MG TABLET 975 MG PO ×2 (08:55→15:02)
[2018-11-15] MEDS: DOCUSATE 100 MG CAPSULE PO (08:56)
[2018-11-15] MEDS: METOPROLOL IR 50 MG TABLET PO (08:56)
[2018-11-15] MEDS: MELOXICAM 7.5 MG TABLET 15 MG PO (08:56)
[2018-11-15] MEDS: ASPIRIN EC 81 MG TABLET PO (08:56)
[2018-11-15] MEDS: SODIUM CHLORIDE 0.9% FLUSH 10 ML IV (08:56)
--- NOTE | 2018-11-15 11:19 | PT.IPTN ---
Current Diagnoses Unilateral primary osteoarthritis, left knee (11/14/18) Surgery Performed Operation Date: 11/14/18 07:45 Actual Procedures p Total Knee Arthroplasty(Left) - Vielka Guy MD Physical Therapy Treatment Note M2 PT-IP Current Condition Start: 11/14/18 15:19 Freq: NEEDED Status: Active Protocol: Document 11/14/18 14:10 HH (Rec: 11/14/18 15:42 HH [id number]) Physical Therapy Current Condition Current Condition Evaluation Date 11/14/18 Treatment Diagnosis L TKA, difficulty in walking Onset Date 11/14/18 Weight Bearing Status Weight Bearing Status Weight Bear as Tolerated M3 PT-IP Subjective Start: 11/14/18 15:19 Freq: NEEDED Status: Active Protocol: Document 11/15/18 09:00 CLB (Rec: 11/15/18 11:19 CLB [id number]) Subjective Physical Therapy Visit Type Type Treatment Note Visit Start Time 09:00 Visit Stop Time 09:30 Total Visit Minutes 30 Number of DRESS OPERATOR Visits 1 Physical Therapy Visit Comments Patient Comments Pt willing to do therapy. Patient Goals To return home and participate with outpatient PT. Therapy Pain Assessment Pain When Pain Assessed During Mobility Pain Present Pain Present Pain Reported Location Left Knee Intensity 4 Scale Used Numeric (1 - 10) M4 PT-IP Mobility and Gait Start: 11/14/18 15:19 Freq: NEEDED Status: Active Protocol: Document 11/15/18 09:00 CLB (Rec: 11/15/18 11:19 CLB [id number]) PT-Bed Mobility Assessment Supine to Sit Supine to Sit Standby Assistance Head of Bed Elevated Scooting Scooting to Edge of Bed Standby Assistance PT-Transfer Assessment Sit to and From Stand Sit to and from Stand Standby Assistance Use of Upper Extremities Equipment Transfer Assistive Device Gait Belt Front Wheeled Walker Transfers Transfer Destination Bed Chair Toilet Transfer Technique Stand Step Pivot Transfer Ability Level of Assist Standby Assistance Comments Mobility Comments Pt is SBA for all mobility and transfers. Pt able to transfer to toilet and perform own pericare and was steady at sink during hand washing. Gait Assessment Gait Gait Assistance Required: Standby Assistance Contact Guard Assist Distance (Feet) 225 Able to Maintain Weight Bearing Status Yes During Gait Assistive Devices Assistive Device Gait Belt Front Wheeled Walker Gait Deviations General Gait Pattern Antalgic Decreased Stride Length Decreased Feet Clearance Factors Limiting Gait Function Factors Limiting Gait Function Decreased Activity Tolerance Decreased Sensation Decreased Strength Limited Range of Motion Pain Comments Gait Comments Pt increased ambulation to ~ 225 ft in [place] using small step through gait pattern with steady balance and good safety awareness. Stair Climbing Assessment Evaluation Level of Assist On Stairs Standby Assistance Devices Stair Climbing Assistive Devices Left Railing Right Railing Technique/Endurance Stair Climbing Direction Ascend and Descend Stair Climbing Technique Step to Step Number of Steps Climbed 3 Query Text: Stair Climbing Set # Repetitions (reps) 2 Comments Stair Climbing Comments Pt demonstrates good ability to climb stairs safely. M5 PT-IP Objective Assessments Start: 11/14/18 15:19 Freq: NEEDED Status: Active Protocol: Document 11/14/18 14:10 HH (Rec: 11/14/18 15:42 [id number]) Orientation Orientation/Cognition Level of Alertness Alert Orientation Name Age Birthday Month Date Year Day of Week Place Situation Language Function Ability No Deficits Noted Safety Awareness Understands Safety Issues Memory Description No Deficits Noted Gross Range of Motion Upper Extremity ROM Assessment Within Functional Limits Lower Extremity ROM Assessment Left Impaired Impairments L knee flexion and extension 100 degrees to 5 degrees Strength Upper Extremity Strength Assessment Within Functional Limits Lower Extremity Strength Assessment Left Impaired Comments Strength Comments 4-/5 L knee strength grossly Coordination Assessment Gross Coordination Gross Coordination WNL Sensation Assessment Sensation Gross Sensation Left LE Impaired Light Touch Impaired Proprioception (Position) Impaired Sensation Description Numbness Tingling Comments Sensation Comments c/o numbness and tingling at the bottom of L foot Muscle Tone Muscle Tone WNL Yes M6 PT-IP Treatment Start: 11/14/18 15:19 Freq: NEEDED Status: Active Protocol: Document 11/15/18 09:00 CLB (Rec: 11/15/18 11:19 CLB [id number]) Physical Therapy Treatment Exercises Exercises Ankle Pumps Quad Sets Heel Slides Straight Leg Raises Short Arc Quads Education Education Provided Precautions Weight Bearing Status Post-Op Packet Safety M7 PT-IP Assessment and Plan Start: 11/14/18 15:19 Freq: NEEDED Status: Active Protocol: Document 11/15/18 09:00 CLB (Rec: 11/15/18 11:19 CLB [id number]) PT Summary Assessment and Plan Summary Assessment Summary Pt increased ambulation to ~ 225 ft in [place]. Pt is SBA for all bed mobility, gait and stair climbing. Pt felt dizzy right before sitting in chair requiring CGA to assist her stand-sit and felt like she was going to faint. Pt was seated and reclined. BP 84/51 in sitting reclined and after 2 minutes BP was 110/63 and pt stated she was feeling better . RN was notified. Goals Bed Mobility Goal Independent Transfer Goal Independent Front Wheeled Walker Gait Goal Independent Front Wheel Walker Gait Distance 300 Other Goals stair climbing with rails as rose marie independently Days to Meet Goals 3 Frequency of Treatment Frequency Of Treatment Twice a Day Treatment Plan Physical Therapy Treatment Plan Bed Mobility Training Transfer Training Gait Training Therapeutic Exercise Balance Retraining Post Op Education Discharge Planning Hot or Cold Pack Other Recommendations and Next Treatment gait and ther ex Focus Recommendations To Nursing Amount of Assist Needed Standby Assistance 1 Person Assist Discharge Recommendations PT Discharge Recommendations Home with Assistance Outpatient PT
--- NOTE | 2018-11-15 11:55 | PC.NURSE ---
Assess- Pt walked with AIRPLANE FLIGHT ATTENDANT and bp down to 80s/50s, Pt sat down in chair and it came up immediately 110/63. She denies feeling dizzy after pressure up, she complained of some dizziness and thought she was going to pass out but did not. Given 1 percolone for complaints of discomfort and helpful. Pts hemovac unclamped at 0800 and pt had 75cc out in one hour. Dr. Guy up to see patient and stated to clamp hemovac for two more hours and unclamp at [address] or PA know output if it is a significant amount.
--- NOTE | 2018-11-15 12:00 | CM.DANOTE ---
Addendum entered by Debbi Cadena LPN 11/15/18 13:16: Met with pt as planned. She reports that she is very hopeful that she will be able to go home today but the drain was still in place and needed to have less output before she was ok'd to go. She noted that she feels comfortable with the mobility piece of her d/c and that she had the other knee replaced in June. Her POA Kikeila Fuger: [phone] will be assisting her as need be at home and she has her appt set up with [facility] for OUTPT PT. She expresses thankfulness for the visit but anticipates no problems with the d/c home, either later today or tomorrow if she must stay. Original Note: Discharge Planning/Care Management DCP: assessment: case received, EMR reviewed and discussed in Team Rounds. Ortho DARYN Bhatti noted that pt was to be discharged to home today, the order was put in commercial kitchen service technician, but with addendum that the hemavac be out and pt be cleared for home by PT. Pt is a 58 year old female who admitted to care of Surgeon: Dr. Guy for a planned L TKA Payer: [facility]. PT did see pt for eval yesterday and BRUNILDA Lundberg has worked with pt this morning. Pt did have some dizziness and drop in BP during session. Will check in now with pt for introduction of self and role. CM Discharge Assessment Start: 11/15/18 11:58 Freq: Status: Active Protocol: Document 11/15/18 11:59 ITV (Rec: 11/15/18 12:00 ITV [id number]) Discharge Planning Assessment Advance Directives? No History Provided By Patient Medical Record Prior Living Arrangements House Is patient alert and oriented? Yes Patient/Family Preference OP PT Therapy Comment set up with [facility] Referrals Initiated None needed Whiteboard Updated in Patient Room with Yes name and ext. # of Coffee Weigher Review Status In Process Next Review Type Continued Stay Review Pre-Anesthesia Assessment Start: 10/13/18 08:15 Freq: Status: Complete Protocol: Document 10/13/18 08:15 CAB (Rec: 10/13/18 08:31 CAB [id number]) Pre-Anesthesia Assessment Patient Also Known As (AKA) Cassandra Patient Information Reviewed Via Phone Assessment Assessment Completed With Patient Diagnostic Results BMP/CMP CBC EKG Comment Outside labs 09/28/18 scanned to record Primary Care Provider Aundrea Silverman Seen Specialist in Last 12 Months Yes Specialist Seen Cottage Supervisor Orthopedist Primary Language Kazakh Audio Tape Librarian Required No Height 177.8 cm Weight 113.398 kg Body Mass Index (BMI) 35.9 Hearing Ability Normal Visual Assist Glasses Dentition Type Teeth, Natural Present Barriers to Learning None Other Aids No Hx Anesthesia Reactions No Hx Family Anesthesia Reaction Yes: Yes: Mother has had problems with her heart under anesthesia Hx Malignant Hyperthermia No Hx Blood Transfusions No Hx Blood Transfusion Reaction No Anesthesia Review Requested No Room Service Bellhop No alcohol intake current alcohol intake frequency 0-2 drinks per day Smoking Status Former smoker Smoking packs per day 0.5 how long ago did patient quit smoking Quit 2011, smoked 25 years Smoking pack-years 13 Substance Use Type does not use Pain Present Pain Reported Musculoskeletal Symptoms Abnormal Gait Difficulty Walking Joint Pain Post op Pain History of Falling (Recent or History of No ) Patient is completely paralyzed or No completely immobile Mental Status Oriented to own ability Is patient on oxygen? No Does patient have CERDA/SOB No Hx Sleep Apnea No CPAP/BIPAP use not prescribed Suspected Sleep Apnea No Currently Taking a Beta Blank Yes: Metoprolol Can You Climb a Flight of Stairs Without Yes SOB Hx Chest Pain No Hx SOB No Hx Syncope or Dizziness No Anti-Coagulant Therapy No Has a Cottage Supervisor Yes: Dr. Leahy Cardiac Testing No Hx Pacemaker/ICD No Pacemaker Rep Required? No Cardiac Clearance Received Not Applicable Diet Type At Home Regular dysphagia No Bladder Pattern Urgency Urinary Catheter Present No Hx Urinary Self Catheterization No Diabetes No HgbA1C 5.0 Date 05/31/18 Patient No Lactating No Hx Drug Resistant Organism No Presence of External or Internal Medical No Devices Have you traveled outside the [facility] States in the last 30 days? Marital Status Single Lives With significant other Prior Living Arrangements House Number of Floors (Floors) One Floor Number of Stairs To Enter/Railing? 2 stairs, no railings Support System Family Parent(s) Significant Other Does the Patient Have Assistance After Yes Surgery Patient Discharge Plan Description Return Home Comment Pt advsied one day length of stay per surgeon's office Feels Safe in Current Environment Yes Been Physically Hurt or Threatened By a No Person in Current Environment Do you have thoughts of harming yourself None or others? Are you currently considering suicide? No Do you have a plan to hurt yourself or No Plan others? Do You Have Any Spiritual Beliefs That No May Affect Your HC Choices? Do You Have Any Cultural Practices That No May Affect Your HC Choices? Spiritual Referral None Comment Buddhist Who Can We Speak to About Patient's Care Family, friends Identifying Code for Release of Patient Declines to issue Information Health Care Proxy/Next of Kin Estefanía Solis (Mom) Health Care Proxy Emergency Contact Name Heather Levi (S.O.) Emergency Contact Advance Directives? No: Declines further information Power of Weed Controller Yes Power of Weed Controller Name Heather Gurmeet (S.O.) Power of Weed Controller PAC Instructions Do not shave/clip surgical site Durable medical equipment Medications to take/avoid Nasal antibiotic No ETOH/petroleum product on skin DOS NPO Pre-op antibiotic Pre-surgical wash Sturdy shoes/comfortable clothes Do not bring valuables and remove jewelry
[2018-11-15 12:22] VITALS: BP 91/53; PULSE 71; RESP 19; TEMP 36.8; O2SAT 99
[2018-11-15 12:41] VITALS: BP 100/68; PULSE 69; RESP 16
[2018-11-15 15:53] VITALS: BP 114/73; PULSE 79; RESP 16; TEMP 36.7; O2SAT 100
--- NOTE | 2018-11-15 17:55 | PC.NURSE ---
Kristan shift note: [address] Guy orders. Hemovac removed, patient tolerated well. Up out of bed, no c/o dizziness. VSS and afebrile. Discussed importance of F/U with Ortho, home care instructions, and activity. Verbalized understanding of instructions. Discharged home via private vehicle.
== END 2018-11-15 16:30 | disposition home or self-care (01) | DRG 470 ==
PROVIDERS: Admitting Provider Orthopaedic Surgery; PCP Nurse Practitioner; Visit Provider Orthopaedic Surgery
PROC: 0SRD0JZ Replacement of Left Knee Joint with Synthetic Substitute, Open Approach (ICD-10-PCS; CPT 27447; principal; 2018-11-14 07:45)
DX: M17.12 Unilateral primary osteoarthritis, left knee (principal); Z96.651 Presence of right artificial knee joint; E03.9 Hypothyroidism, unspecified; I10 Essential (primary) hypertension; E78.5 Hyperlipidemia, unspecified
CPT/HCPCS: 36415; 73560; 85014; 85018; 94762; 97110; 97116; 97161; 97530; C1776; C9290; J0690; J1100; J2250; J2274; J2405; J2704; J3010; J3370